=== PATIENT | female | born 1945 | race Caucasian/White ===

== ENCOUNTER 2017-08-21 17:00 | Emergency (ER) | payer MEDICARE, OTHER ==
[2017-08-21 17:36] VITALS: BP 137/78
--- NOTE | 2017-08-21 18:45 | ED Physician Documentation ---
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 As the source patient, she presents now for HIV and hepatitis screening, as per protocol of the pharmacist's employer. She denies any high risk behavior associated with HIV or hepatitis. 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: Hysterectomy HEENT: Tonsil/Adenoidectomy - Present Medications Home Medications: Ambulatory Orders Medication Instructions Recorded Confirmed No Known Home Medications [No 08/21/17 08/21/17 Known Home Medications] - Allergies Allergies/Adverse Reactions: Allergies Allergy/AdvReac Type Severity Reaction Status Date / Time Penicillins Allergy Unknown Verified 08/21/17 17:36 - Social History Does the pt smoke?: No Smoking Status: Never smoker Does the pt drink ETOH?: No Does the pt have substance abuse?: No PD ED PE NORMAL - Vitals Vital signs reviewed: Yes (Borderline hypertension.) - General General: Alert and 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, Well developed/nourished - HEENT HEENT: Atraumatic - Respiratory Respiratory: No respiratory distress - Derm Derm: No rash - Neuro Neuro: Alert and 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, Normal speech Results - Labs Labs: Laboratory Tests 08/21/17 08/21/17 08/21/17 18:22 18:22 18:22 Hep Bs Antigen NON-REACTIVE Hepatitis C Antibody NON-REACTIVE Hep C Ab Signal/Cutoff 0.10 HIV 1&2 Ag/Ab, 4th Gen NON-REACTIVE PD MEDICAL DECISION MAKING - ED course Complexity details: considered differential, d/w patient ED course: The patient is the source patient for an accidental hypodermic needle stick in a healthcare provider. She is unlikely to be a carrier of HIV or hepatitis, having no associated risk factors. In the emergency Department her blood was drawn for HIV and hepatitis B and C screening, as per protocol of the pharmacist 's employer. Departure - Departure Disposition: 01 Home, Self Care Clinical Impression: Needle stick injury Condition: Stable Instructions: [place] Other [place] Precautions Follow-Up: James Almodovar DO [Primary Care Provider] - Comments: Follow-up with your primary physician for results of the blood tests. Discharge Date/Time: 08/21/17 18:47
== END 2017-08-21 18:47 | disposition home or self-care (01) ==
LOC: ED 17:00
DX: S69.90XA Unspecified injury of unspecified wrist, hand and finger(s), initial encounter (principal); Z77.21 Contact with and (suspected) exposure to potentially hazardous body fluids; W46.1XXA Contact with contaminated hypodermic needle, initial encounter
CPT/HCPCS: 36415; 86803; 87340; 99282; G0475; 87389

== ENCOUNTER 2018-09-19 12:30 | Emergency (ER) | payer MEDICARE, OTHER ==
[2018-09-19] MEDS ORDERED: TETANUS/DIPHTHERIA/PERTUSSIS 0.5 ML SYRINGE IM ONE (13:08)
[2018-09-19] MEDS ORDERED: OXYMETAZOLINE NASAL SPRAY NAS STA (13:08)
--- NOTE | 2018-09-19 13:10 | ED Physician Documentation ---
History of Present Illness - Stated complaint Stated Complaint: FACIAL INJ/GLF - Chief complaint Chief Complaint: Heent - History obtained from History obtained from: Patient - History of Present Illness Timing: Today (She tripped over her 's oxygen tubing and went face first into a concrete block and has nasal pain although denies the need for pain medication. Her major complaint is that she cannot breathe through either nares and she has a persistent nosebleed on both sides. No loss of consciousness or headache. 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 HEENT: Tonsil/Adenoidectomy - Present Medications Home Medications: Ambulatory Orders Medication Instructions Recorded Confirmed Mometasone Furoate [Nasonex] 17 gm NS BID #1 spray.pump 09/19/18 - Allergies Allergies/Adverse Reactions: Allergies Allergy/AdvReac Type Severity Reaction Status Date / Time Penicillins Allergy Unknown Verified 08/21/17 17:36 - Social History Does the pt smoke?: No Smoking Status: Never smoker Does the pt drink ETOH?: No Does the pt have substance abuse?: No PD ED PE NORMAL - Vitals Vital signs reviewed: Yes - General General: Alert and 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, No acute distress - HEENT HEENT: PERRL, EOMI, Pharynx benign, Other (The nasal bridge is very swollen and quite tender with developing ecchymosis especially on the left, the nasal mucosa is very swollen but there is no septal hematoma.) - Neck Neck: Supple, no meningeal sign, No bony TTP - Neuro Neuro: Alert and 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, 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) PD MEDICAL DECISION MAKING - ED course ED course: 73-year-old woman with isolated facial injuries, no septal hematoma but clinically has a septal nasal fracture. This is corroborated on x-ray. Bleeding ceased pretty much after oxymetazoline spray. Referred to [facility] for consultation. Departure - Departure Disposition: Home, Self Care Clinical Impression: Open fracture of nasal septum, Head injury, Nasal fracture Condition: Good Record reviewed to determine appropriate education?: Yes Instructions: ED Fx Nasal Conf W X Ray, ED Head Injury Closed Prescriptions: Mometasone Furoate [Nasonex] 17 gm NS BID #1 spray.pump Comments: Can use oxymetazoline spray which is available [id number] every hour for bleeding or nasal congestion. You can also use the nasal steroid to help with the swelling. You should follow-up with a oral maxillofacial surgeon, there is one in [place], Dr. Real Kaba. His phone number is [phone]. Call tomorrow for an appointment. When you go to the appointment take the CD with a copy of your CAT scans with you. Discharge Date/Time: 09/19/18 14:34
[2018-09-19 14:29] VITALS: BP 148/68
--- NOTE | 2018-09-19 14:43 | CT Report ---
Reason: head inj Procedure Date: 09/19/2018 Accession Number: [id number] / [id number] Procedure: CT - Head W/O CPT Code: FULL RESULT: EXAM: CT HEAD EXAM DATE: 09/19/2018 02:03 PM. CLINICAL HISTORY: Fall, head injury. COMPARISON: None. TECHNIQUE: Multiaxial CT images were obtained from the foramen magnum to the vertex. Reformats: Sagittal and coronal. IV contrast: None. In accordance with CT protocol optimization, one or more of the following dose reduction techniques were utilized for this exam: automated exposure control, adjustment of mA and/or KV based on patient size, or use of iterative reconstructive technique. FINDINGS: Parenchyma: No intraparenchymal hemorrhage. No evidence of mass, midline shift, or CT findings of acute infarction. Alexander-white differentiation is distinct. Extraaxial Spaces: Normal for age. No subdural or epidural collections identified. Ventricles: Normal in size and position. Sinuses and Orbits: Trace mucosal thickening paranasal sinuses. Bones: No evidence of fracture or calvarial defect. Other: None. IMPRESSION: Unremarkable noncontrast head CT. No intracranial bleed or mass-effect. RADIA
--- NOTE | 2018-09-19 14:59 | CT Report ---
Reason: nasal inj Procedure Date: 09/19/2018 Accession Number: [id number] / [id number] Procedure: CT - Facial Bones W/O CPT Code: FULL RESULT: EXAM: CT MAXILLOFACIAL WITHOUT CONTRAST EXAM DATE: 09/19/2018 02:03 PM. CLINICAL HISTORY: Fall, facial injury. COMPARISONS: None. TECHNIQUE: Thin-section axial images were acquired of the face without contrast. Post-processing: Coronal and sagittal reformats. Other: None. In accordance with CT protocol optimization, one or more of the following dose reduction techniques were utilized for this exam: automated exposure control, adjustment of mA and/or KV based on patient size, or use of iterative reconstructive technique. FINDINGS: Soft Tissue: Mild left perinasal subcutaneous hematoma. Orbits: Symmetric and unremarkable. Bones: There is a nondisplaced left nasal bone fracture at the base as well as a nondisplaced fracture of the anterior aspect of the nasal septum. Temporomandibular Joints: Moderate bilateral temporomandibular joint osteoarthritis. Sinuses: Mucosal thickening maxillary sinuses. Other: None. IMPRESSION: Left perinasal hematoma with nondisplaced left nasal bone fracture and nondisplaced fracture of the anterior aspect of the nasal septum. RADIA
== END 2018-09-19 14:34 | disposition home or self-care (01) ==
LOC: ED 12:30
DX: S02.2XXB Fracture of nasal bones, initial encounter for open fracture (principal); S09.90XA Unspecified injury of head, initial encounter; W01.10XA Fall on same level from slipping, tripping and stumbling with subsequent striking against unspecified object, initial encounter; Z23 Encounter for immunization
CPT/HCPCS: 70450; 70486; 90471; 90715; 99283; A9270